=== PATIENT | female | born 1975 | race Caucasian/White ===

== ENCOUNTER 2023-09-08 19:34 | Emergency (ER) | payer OTHER, SELFPAY ==
[2023-09-08 19:45] VITALS: BP 139/77; PULSE 80; RESP 16; TEMP 36.6; O2SAT 100
[2023-09-08] MEDS: LIDOCAINE HCL 2% GEL UROJET 10 ML PKG MUCOUS MEM (21:09)
[2023-09-08 21:23] LABS: Appearance Urine Cloudy (Clear); Bacteria Urine 4+ /hpf; Bilirubin Urine Negative (Negative); Blood Urine Negative (Negative); Color Urine Yellow (Yellow); Glucose Urine UA Negative (Negative); Ketones Urine Negative (Negative); Leukocyte Esterase Ur 2+ LEU/UL (Negative); Nitrate Urine Negative (Negative); Non Pathogenic Casts 0-2; Protein Urine Trace mg/dL (Negative); Specific Grav Ur 1.025 (1.001-1.035); Squamous Epithelial Cell Urine Many /hpf (Few); WBC Urine 51-100 /hpf (0-3)
[2023-09-08 21:27] LABS: Add Urine Microscopic? YES
[2023-09-08] MEDS: NITROFURANTOIN MONOHYD MACROCR 100 MG CAP PO (21:53)
[2023-09-08 21:54] VITALS: BP 135/75; PULSE 78; RESP 14; O2SAT 99
--- NOTE | 2023-09-09 | ED.GENADULT ---
HPI - General Adult General Chief complaint: Unspecified Stated complaint: Rectal Pain Time Seen by Provider: 09/08/23 20:54 History of Present Illness HPI narrative: Patient for past 2 weeks has had rectal pain; she has h/o hemorrhoids and has been using sitz baths, tux, hemorrhoid cream. Also having burning pain with urination and frequency. No f/c Related Data Allergies Allergy/AdvReac Type Severity Reaction Status Date / Time Sulfa (Sulfonamide Allergy Hives Verified 09/08/23 19:35 Antibiotics) Review of Systems Review of Systems: All systems reviewed & are unremarkable except as noted in HPI and below Exam Narrative: EXAMINATION OF ORGAN SYSTEMS/BODY AREAS: Constitutional: Vital signs per nursing GENERAL: Appears slightly uncomfortable HEAD: Normal with no signs of head trauma. EYES: EOMI, conjunctiva normal ENT: Hearing grossly intact LUNGS: Nonlabored breathing. HEART: [Regular rate and rhythm] ABD: [Soft], [nontender to palpation] EXT: Normal range of motion SKIN: External hemorrhoid that is tender NEURO: [Alert and oriented x 3. No gross focal sensory or strength deficits.] PSYCH: Normal affect Course Vital Signs Vital signs: Vital Signs Temperature 97.9 F 09/08/23 19:45 Pulse Rate 80 09/08/23 19:45 Respiratory Rate 16 09/08/23 19:45 Blood Pressure 139/77 09/08/23 19:45 Pulse Oximetry 100 09/08/23 19:45 Oxygen Delivery Room Air 09/08/23 19:45 Temperature 97.9 F 09/08/23 19:45 Pulse Rate 78 09/08/23 21:54 Respiratory Rate 14 09/08/23 21:54 Blood Pressure 135/75 09/08/23 21:54 Pulse Oximetry 99 09/08/23 21:54 Oxygen Delivery Room Air 09/08/23 19:45 Medical Decision Making [facility] Narrative Medical decision making narrative: 48F p/w hemorrhoid and dysuria; exam c/w hemorrhoid, no prolapse, doubt perianal abscess or infection since most of the tenderness is to the external hemorrhoid w/o internal fluctuance and no warmth/surrounding fluctuance, and no fevers. UA c/w UTI; started on abx, f/u to gen surg given for hemorrhoid and return precautions Vital Signs Vital Signs: Vital Signs Temperature 97.9 F 09/08/23 19:45 Pulse Rate 80 09/08/23 19:45 Respiratory Rate 16 09/08/23 19:45 Blood Pressure 139/77 09/08/23 19:45 Pulse Oximetry 100 09/08/23 19:45 Oxygen Delivery Room Air 09/08/23 19:45 Temperature 97.9 F 09/08/23 19:45 Pulse Rate 78 09/08/23 21:54 Respiratory Rate 14 09/08/23 21:54 Blood Pressure 135/75 09/08/23 21:54 Pulse Oximetry 99 09/08/23 21:54 Oxygen Delivery Room Air 09/08/23 19:45 Lab Data Labs: Lab Results 09/08/23 Range/Units 21:09 Urine Color Yellow (Yellow) Urine Appearance Cloudy H (Clear) Urine pH 5.0 (5.0-9.0) Ur Specific [place] 1.025 (1.001-1.035) Urine Protein Trace (Negative) mg/dL Urine Glucose (UA) Negative (Negative) mg/dL Urine Ketones Negative (Negative) mg/dL Ur Blood (Man) Negative (Negative) Urine Nitrate Negative (Negative) Urine Bilirubin Negative (Negative) Urine Urobilinogen 1.0 (<2.0) mg/dL Leukocyte Esterase Rfl 2+ H (Negative) ARTIE/UL Urine RBC 3-5 H (0-2) /hpf Urine WBC 51-100 H (0-3) /hpf Ur Squamous Epith Cells Many H (Few) /hpf Urine Bacteria 4+ H /hpf Urine Casts 0-2 Discharge Plan Discharge Clinical Impression: Hemorrhoid Patient Disposition: Home, Self-Care Condition: Stable Instructions: Antibiotic Form, Hemorrhoids (ED), Urinary Tract Infection in Women (ED) Additional Instructions: Please take the antibiotics as prescribed, follow-up with a general surgeon for further evaluation of the painful area. You can always return to the emergency room for any further issues. Prescriptions: New nitrofurantoin monohyd/m-cryst [Macrobid] 100 mg capsule 100 mg PO Q12H 7 Days Qty: 14 0RF Rx Instructions: must administer with a meal/food lidocai
== END 2023-09-08 21:55 | disposition home or self-care (01) ==
LOC: ANHED 21:19
PROVIDERS: Emergency Provider Emergency Medicine
DX: K64.9 Unspecified hemorrhoids (principal)
CPT/HCPCS: 81001; 87086; 99283; A9270

== ENCOUNTER 2023-11-09 09:06 | Emergency (ER) | payer OTHER, SELFPAY ==
[2023-11-09] VITALS (17 sets, daily range): BP systolic 111–135; BP diastolic 70–83; PULSE 63–71; RESP 16–18; TEMP 36.3–36.4; O2SAT 95–100
--- NOTE | ~2023-11-09 | CT_ITS ---
CT cervical spine wo con Ordering provider: Monica Spivey PA-C History: . fall, head injury . Comparison: None. Technique: CT of the cervical spine was performed without contrast. Sagittal and coronal reformatted images were also obtained and reviewed. Automated exposure control and iterative reconstruction janey hnique were employed. The dose-length product was 451.78 mGy-cm. The FINDINGS: VERTEBRAE: No subluxation or acute fracture. The occipital condyles are intact. DISC SPACES: Narrowing of the disc C6-C7. Narrowing of the right intervertebral foramen at the level of C4-C5. Narrowing of the left foramen at the level of C6-C7. PARASPINOUS SOFT TISSUES: Normal. IMPRESSION: No acute osseous abnormality cervical spine. Reviewed, dictated and finalized at location A.
--- NOTE | ~2023-11-09 | CT_ITS ---
CT brain wo con Ordering provider: Monica Spivey PA-C History: 48 years Female with . head injury . Comparison: None. Technique: CT of the head without contrast. No FINDINGS: BRAIN PARENCHYMA AND CSF SPACES: No midline shift, mass effect or hemorrhage. The brain parenchyma a nd CSF spaces are otherwise normal. VISUALIZED PARANASAL SINUSES: Right maxillary sinus disease. Minimal right ethmoidal sinus disease. MASTOIDS: Well aerated. BONES: The bones appear intact. SOFT TISSUES: Visualized nasopharynx is normal. Superficial soft tissues are normal. IMPRESSION: No acute intracranial findings. Reviewed, dictated and finalized at location A.
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
[2023-11-09] MEDS: ACETAMINOPHEN 500 MG TABLET 1000 MG PO (10:01)
[2023-11-09] MEDS: ONDANSETRON HCL ODT 4 MG TABLET PO (10:01)
== END 2023-11-09 11:10 | disposition home or self-care (01) ==
PROVIDERS: Emergency Provider Physician Assistant
DX: S09.90XA Unspecified injury of head, initial encounter (principal); S16.1XXA Strain of muscle, fascia and tendon at neck level, initial encounter; V00.141A Fall from scooter (nonmotorized), initial encounter
CPT/HCPCS: 70450; 72125; 99284; A9270; L0140

== ENCOUNTER 2024-02-18 09:07 | Emergency (ER) | payer OTHER, SELFPAY ==
[2024-02-18 09:14] VITALS: BP 140/73; PULSE 89; RESP 16; TEMP 36.6; O2SAT 98
[2024-02-18 09:28] VITALS: BP 131/77; PULSE 77; RESP 18; TEMP 37.6; O2SAT 98
[2024-02-18] MEDS: SODIUM CHLORIDE 0.9% IV 1,000 ML 999 ML IV CONT (09:45)
[2024-02-18] MEDS: KETOROLAC 30 MG/ML VIAL (*BKC) IV PUSH (09:48)
[2024-02-18] MEDS: MECLIZINE HCL 25 MG TABLET PO (09:49)
[2024-02-18 10:51] LABS: Influenza A QL RT-PCR Negative (Negative); Influenza B QL RT-PCR Negative (Negative); RSV RNA, RT-PCR Negative (Negative); SARS-CoV-2 RNA PCR Positive (Negative)
[2024-02-18 11:48] VITALS: BP 134/78; PULSE 82; RESP 16; O2SAT 98
[2024-02-18] MEDS: ACETAMINOPHEN 325 MG TABLET 650 MG PO (12:16)
--- NOTE | 2024-02-18 12:17 | ED_ITS ---
HPI - General Adult General Chief complaint: Ear Stated complaint: bilateral ear and eye pain, neck and head pain Time Seen by Provider: 02/18/24 09:14 History of Present Illness HPI narrative: patient is a 48-year-old female who presents ER with reports of headache. Associated with nasal congestion. Has pressure in her ears bilaterally with dizziness in the room causing her GUEVARA. no alleviating factors. No known sick contacts. No vomiting. Related Data Allergies Allergy/AdvReac Type Severity Reaction Status Date / Time Sulfa (Sulfonamide Allergy Hives Verified 02/18/24 09:32 Antibiotics) Review of Systems Constitutional: Constitutional: Reports no additional constitutional complaints ENT: Reports dizziness, Reports nasal congestion and Denies sore throat Cardiovascular: Cardiovascular: Reports no additional cardiovascular complaints Respiratory: Respiratory: Reports no additional respiratory complaints [facility] Past Medical History Medical History (Updated 02/18/24 @ 12:20 by Osorio Lancaster MD) Hormone replacement therapy Social History Social History (Updated 11/09/23 @ 09:40 by Monica Spivey PA-C) Substance use: never Exam Narrative: GENERAL: Fatigued-appearing, well-nourished, and in no acute distress. HEAD: Normocephalic, atraumatic. EYES: PERRL and EOMI. ENT: Mucous membranes moist. Bulging TM left side without erythema. With your manipulation there is a loud pop from opening the eustachian tube. Right eardrum unremarkable. NECK: Supple. CHEST: Clear to auscultation. No respiratory distress. HEART: Regular rate and rhythm. Normal peripheral pulses. EXTREMITIES: Normal range of motion. No edema. NEURO: Alert and oriented x3. PSYCH: Normal mood and affect. Course Course Emergency Course: COVID positive. Discussed treatment plan. Patient verbalized understanding. Headache improving with Toradol and fluids as well as meclizine. Still having ear pain. Recommend tylenol and ibuprofen. Vital Signs Vital signs: Vital Signs Temperature 97.8 F 02/18/24 09:14 Pulse Rate 89 02/18/24 09:14 Respiratory Rate 16 02/18/24 09:14 Blood Pressure 140/73 02/18/24 09:14 Pulse Oximetry 98 02/18/24 09:14 Temperature 99.6 F 02/18/24 09:28 Pulse Rate 82 02/18/24 11:48 Respiratory Rate 16 02/18/24 11:48 Blood Pressure 134/78 02/18/24 11:48 Pulse Oximetry 98 02/18/24 11:48 Oxygen Delivery Room Air 02/18/24 09:28 Medical Decision Making Vital Signs Vital Signs: Vital Signs Temperature 97.8 F 02/18/24 09:14 Pulse Rate 89 02/18/24 09:14 Respiratory Rate 16 02/18/24 09:14 Blood Pressure 140/73 02/18/24 09:14 Pulse Oximetry 98 02/18/24 09:14 Temperature 99.6 F 02/18/24 09:28 Pulse Rate 82 02/18/24 11:48 Respiratory Rate 16 02/18/24 11:48 Blood Pressure 134/78 02/18/24 11:48 Pulse Oximetry 98 02/18/24 11:48 Oxygen Delivery Room Air 02/18/24 09:28 Lab Data Labs: Lab Results 02/18/24 Range/Units 09:52 Influenza A (RT-PCR) Negative (Negative) Influenza B (RT-PCR) Negative (Negative) RSV (RT-PCR) Negative (Negative) SARS-CoV-2 RNA (RT-PCR) Positive A (Negative) Discharge Plan Discharge Clinical Impression: COVID, Vertigo, Otalgia Patient Disposition: Home, Self-Care Condition: Stable Instructions: Vertigo (ED), Earache (ED), COVID-19 (Coronavirus Disease 2019) (ED) Additional Instructions: As discussed you have a viral illness. Unfortunately there are no specific medications we can give you to make the illness end faster. Antibiotics do not work for viral illnesses. However, you can take Acetaminophen or Ibuprofen to help with fevers and pain. Stay well hydrated and rested. Return to the emergency department if your fevers and chills continue to worse after 5 days, if you develop worsening cough with thick sputum, or are unable to stay hydrated. Contact your primary care provider in the next few days for a re-evaluation and to make sure your symptoms are improving. Patient Language: [place] Prescriptions: New meclizine 25 mg tablet 25 mg PO TID Qty: 14 0RF Paxlovid 300 mg (150 mg x 2)-100 mg tablets,dose pack See Rx Instructions .ROUTE .COMPLEX Qty: 30 0RF Rx Instructions: take TWO 150 mg tablets of nirmatrelvir with ONE 100 mg tablet of ritonavir twice daily for 5 days No Action cyclobenzaprine 10 mg tablet 10 mg PO TID PRN (Reason: muscle spasm) Qty: 14 0RF nitrofurantoin monohyd/m-cryst [Macrobid] 100 mg capsule 100 mg PO Q12H 7 Days Qty: 14 0RF Rx Instructions: must administer with a meal/food lidocaine HCl [Lidocaine Viscous] 2 % solution 1 applic mucous membrane TID PRN (Reason: pain) Qty: 100 0RF polyethylene glycol 3350 [Miralax] 17 gram/dose powder 17 g PO DAILY Qty: 119 0RF hydrocortisone [Anusol-HC] 2.5 % cream with perineal applicator 1 applic RECTAL DAILY PRN (Reason: hemorrhoids) Qty: 30 0RF Follow-up/Referrals: UNKNOWN,DOCTOR [Primary Care Provider] -
== END 2024-02-18 12:31 | disposition home or self-care (01) ==
PROVIDERS: Emergency Provider Emergency Medicine
DX: U07.1 COVID-19 (principal); R42 Dizziness and giddiness; H92.02 Otalgia, left ear
CPT/HCPCS: 87637; 96374; 96375; 99284; A9270; J1885; J7030